=== PATIENT | female | born 2000 | race Caucasian/White ===

== ENCOUNTER 2023-07-02 14:05 | Emergency (ER) | payer BC ==
[~2023-07-02] VITALS: Ht 152.4 cm; Wt 45.4 kg
[2023-07-02 14:28] VITALS: BP 107/72; PULSE 87; RESP 16; TEMP 97.5; O2SAT 98
[2023-07-02] MEDS ORDERED: KETOROLAC 30 MG/ML VIAL IM ONE (14:45)
[2023-07-02 15:18] LABS: APPEARANCE,URINE SL CLOUDY (CLEAR); BILIRUBIN,URINE NEGATIVE (NEGATIVE); BLOOD, URINE 3+ (NEGATIVE); COLOR,URINE YELLOW (YELLOW); LEUKOCYTE ESTERASE ,URINE TRACE (NEGATIVE); NITRITE, URINE NEGATIVE (NEGATIVE); PROTEIN,URINE NEGATIVE (NEGATIVE); UGLUCOSE NEGATIVE (NEGATIVE)
[2023-07-02 15:28] LABS: BASOPHILS % (AUTO) 0.4 % (0.0-2.0); EOSINOPHILS % (AUTO) 0.7 % (0.0-4.0); HEMATOCRIT 39.7 % (36-48); HEMOGLOBIN 13.4 g/dL (12.0-16.0); LYMPHOCYTES # (AUTO) 1.1 K/uL (2.5-16.5); LYMPHOCYTES % (AUTO) 24.1 % (20.5-51.1); MEAN CORPUSCULAR HEMOGLOBIN 31 pg (27-31); MEAN CORPUSCULAR HGB CONC 34 g/dL (33-37); MEAN CORPUSCULAR VOLUME 91.6 fL (80-94); MONOCYTES # (AUTO) 0.6 K/uL (0.8-1.0); MONOCYTES % (AUTO) 12.7 % (1.7-9.3); NEUTROPHILS # (AUTO) 2.7 K/uL (1.8-7.7); NEUTROPHILS % (AUTO) 62.1 % (42.2-75.2); PLATELET COUNT (AUTO) 244 K/uL (140-450); RED BLOOD CELL COUNT(AUTO) 4.34 MIL/uL (4.20-5.40); WHITE BLOOD COUNT (AUTO) 4.4 K/uL (4.8-10.8)
[2023-07-02 15:36] LABS: BACTERIA,URINE 2+ /HPF (None Seen); MUCUS,URINE 1+ /LPF (None Seen); RBC,URINE 50-80 /HPF (0-5); SQUAMOUS EPITHELIAL CELL,UR 4-10 (MOD) /LPF (0-3 (FEW)); TRICHOMONAS,URINE None Seen /HPF (None Seen); YEAST,URINE None Seen /HPF (None Seen)
[2023-07-02 15:39] VITALS: O2SAT 98
[2023-07-02 15:49] LABS: ALBUMIN 3.7 g/dL (3.4-5.0); ANION GAP 11.8 (8-16); CALCIUM 8.4 mg/dL (8.5-10.1); CARBON DIOXIDE 26.8 mmol/L (21-32); CREATININE 0.6 mg/dL (0.6-1.3); POTASSIUM 3.6 mmol/L (3.5-5.1); TOTAL BILIRUBIN 0.2 mg/dL (0.0-1.0)
[2023-07-02] MEDS ORDERED: DICYCLOMINE HCL LIQUID 20 MG, ALUMINUM HYD/MAG/SIMETHICONE 30 ML, LIDOCAINE VISCOUS 2% ... PO ONE ×3 (15:55)
[2023-07-02] MEDS ORDERED: cephALEXin 500 MG CAP PO ONE (15:55)
[2023-07-02] MEDS ORDERED: FAMOTIDINE 20 MG TAB PO ONE (15:55)
[2023-07-02] MEDS ORDERED: ALUMINUM HYD/MAG/SIMETHICONE 30 ML UDC ONE (16:13)
[2023-07-02] MEDS ORDERED: DICYCLOMINE HCL LIQUID 10 MG/5 ML UDC ONE (16:13)
[2023-07-02] MEDS ORDERED: BISM262C52 PO (16:47)
[2023-07-02] MEDS ORDERED: FAMO-90 PO (16:47)
[2023-07-02] MEDS ORDERED: ALUM355S59 PO (16:47)
[2023-07-02 16:50] VITALS: BP 108/82; PULSE 87; RESP 16; TEMP 97.5
[2023-07-02 17:07] VITALS: O2SAT 98
[2023-07-03] MEDS ORDERED: CEPH-588 PO (01:19)
== END 2023-07-02 16:52 | disposition home or self-care (01) ==
LOC: MED 14:05
DX: K29.70 Gastritis, unspecified, without bleeding (principal); N39.0 Urinary tract infection, site not specified; Z90.49 Acquired absence of other specified parts of digestive tract; Z79.899 Other long term (current) drug therapy
CPT/HCPCS: 36415; 74018; 80053; 81001; 81025; 83690; 85025; 87086; 96372; 99285; J1885